=== PATIENT | female | born 1975 | race Caucasian/White ===

== ENCOUNTER 2024-10-18 09:57 | Day surgery (SDC) | payer OTHER ==
[2024-10-18] MEDS ORDERED: dexAMETHasone sodium phosphate IJ ONE (09:58)
[2024-10-18] MEDS ORDERED: Sodium Chloride 0.9(Preservative Free) 10 ML IJ ONE (09:58)
[2024-10-18 11:32] LABS: HCG URINE TEST NEGATIVE (NEGATIVE)
[2024-10-18] MEDS ORDERED: propofoL IV ONE (12:33)
--- NOTE | 2024-10-18 13:20 | XRAY ---
Indication: Left L4-S1 transforaminal KATIA. Intraoperative fluoroscopy provided for 36 seconds. 4 digital spot image submitted for interpretation demonstrates posterior needle tips projecting over expected left L4 and L5 nerve roots. Small amount of contrast injected for needle tip placement. Correlate with intraoperative findings/report.
--- NOTE | 2024-10-18 14:52 | XRAY ---
36 seconds of fluoroscopy was used in surgery for a left L4-S1 transforaminal KATIA.
== END 2024-10-18 13:05 | disposition home or self-care (01) ==
LOC: SDC-PAIN 09:57
PROVIDERS: ATTEND Psychiatry & Neurology Pain Medicine
DX: M54.16 Radiculopathy, lumbar region (principal)
CPT/HCPCS: 64483; 64484; 72100; 77003; 81025; J1100; J2704; Q9966

== ENCOUNTER 2025-05-08 11:15 | Day surgery (SDC) | payer OTHER ==
[2025-05-08] MEDS ORDERED: methylPREDNISolone acetate IM ONE (11:16)
[2025-05-08] MEDS ORDERED: BUPIVACAINE 0.5% VIAL IJ ONE (11:16)
[2025-05-08 11:43] LABS: HCG URINE TEST NEGATIVE (NEGATIVE)
[2025-05-08] MEDS ORDERED: propofoL IV ONE ×2 (13:06)
--- NOTE | 2025-05-08 14:23 | XRAY ---
Indication: Left intercostal nerve block, approximately 9-11 ribs. Intraoperative fluoroscopy provided for 7 seconds. 3 digital spot images submitted for interpretation demonstrates needle tips adjacent to unknown lateral left lower ribs. Correlate with intraoperative findings/report.
--- NOTE | 2025-05-08 14:26 | XRAY ---
7 seconds of fluoroscopy used in surgery for a left intercostal nerve block.
[2025-05-08] MEDS ORDERED: Lactated Ringers 1,000 ML IV ONE (15:18)
== END 2025-05-08 13:40 | disposition home or self-care (01) ==
LOC: SDC-PAIN 11:15
PROVIDERS: ATTEND Psychiatry & Neurology Pain Medicine
DX: R07.81 Pleurodynia (principal)